=== PATIENT | male | born 1975 | race Caucasian/White ===

== ENCOUNTER 2022-07-10 17:13 | Emergency (ER) | payer OTHER, BC ==
[2022-07-10] MEDS ORDERED: Ondansetron PF 4 MG/2 ML Vial ONE (18:12)
[2022-07-10] MEDS ORDERED: HYDROmorphone 0.5 MG/0.5 ML SYRINGE ONE (18:13)
[2022-07-10 20:29] LABS: #Eosinphils 0.1 10x3/uL (0.0-0.5); #Monocytes 0.7 10x3/uL (0.0-1.1); #Neutrophils 8.4 10x3/uL (1.5-8.4); %Basophils 0.4 % (0.0-2.0); %Eosinophils 0.7 % (0.0-6.0); %Lymphocytes 12.4 % (18.0-47.0); %Monocytes 6.6 % (0.0-10.0); %Neutrophils 79.5 % (40.0-75.0); Hemoglobin 13.5 g/dL (13.5-17.5); Mean Corpuscular HGB CONC 36.1 g/dL (32.0-36.0); Mean Corpuscular Hemoglobin 31.3 pg (27.0-33.0); Mean Corpuscular Volume 86.8 fl (81.2-95.1); Platelet Count 190 10x3/uL (150-450); RBC Distribution Width 12.7 % (11.5-14.5); Red Blood Cell (RBC) Count 4.31 10x6/uL (4.32-5.72); White Blood Cell (WBC) Count 10.5 10x3/uL (3.5-10.5)
[2022-07-10 21:02] LABS: ALT (SGPT) 22 U/L (8-55); AST (SGOT) 29 U/L (5-34); Albumin 4.1 g/dL (3.5-5.0); Alkaline Phosphatase 60 U/L (40-110); Anion Gap 13 mmol/L (10-20); BUN (Urea Nitrogen) 16 mg/dL (8.9-20.6); Bilirubin, Total 0.5 mg/dL (0.2-1.2); Calc. Creatinine Clearance 0 mL/min (70-130); Calcium 8.7 mg/dL (7.8-10.44); Carbon Dioxide 21 mmol/L (22-29); Chloride 107 mmol/L (98-107); Estimated GFR 105; Globulin 2.3 g/dL (2.4-3.5); Glucose 108 mg/dL (70-105); Protein, Total 6.4 g/dL (6.0-8.3); Sodium 137 mmol/L (136-145)
[2022-07-10] MEDS ORDERED: HYDROcodone/Acetaminophen 5/325 mg Tablet PO PRN (21:03)
[2022-07-10] MEDS ORDERED: Acetaminophen 325 MG TAB PO PRN (21:03)
[2022-07-10] MEDS ORDERED: Senokot S 8.6-50 MG TAB PO PRN (21:03)
[2022-07-10] MEDS ORDERED: Ondansetron PF 4 MG/2 ML Vial IVP PRN (21:03)
[2022-07-10] MEDS ORDERED: Calcium Carbonate 500 MG ChewTAB PO PRN (21:03)
[2022-07-10] MEDS ORDERED: Morphine 4 MG/ML VIAL SLOW IVP PRN (21:07)
[2022-07-10] MEDS ORDERED: Morphine 2 MG/ML SYRINGE SLOW IVP PRN (21:07)
[2022-07-10] MEDS ORDERED: Lactated Ringer's 1,000 ML IV SCH (21:15)
[2022-07-10] MEDS ORDERED: Enoxaparin Sodium 40 MG/0.4 ML SYRINGE SC SCH (21:15)
[2022-07-10 21:19] LABS: SARS-CoV-2 NAA Rapid Test Not Detected (NotDetected)
[2022-07-10] MEDS ORDERED: Ketorolac Tromethamine 30 MG/ML VIAL IVP SCH (21:30)
[2022-07-10] MEDS ORDERED: Ketorolac Tromethamine 30 MG/ML VIAL ONE (21:49)
[2022-07-10] MEDS ORDERED: Morphine 4 MG/ML VIAL ONE (22:25)
[2022-07-11] MEDS ORDERED: Famotidine/PF 20 mg/2ml Vial SLOW IVP SCH (09:00)
== END 2022-07-11 00:11 | disposition short-term general hospital (02) ==
LOC: CSHERS 17:13
DX: S82.191A Other fracture of upper end of right tibia, initial encounter for closed fracture (principal); S82.831A Other fracture of upper and lower end of right fibula, initial encounter for closed fracture; Z20.822 Contact with and (suspected) exposure to COVID-19; V29.99XA Rider (driver) (passenger) of other motorcycle injured in unspecified traffic accident, initial encounter
CPT/HCPCS: 29505; 80053; 85025; 96374; 96375; J1170; J1885; J2270; J2405; U0002